=== PATIENT | male | born 1990 | race American Indian/Alaskan Native ===

== ENCOUNTER 2018-09-20 18:57 | Emergency (ER) | payer OTHER ==
[2018-09-20 19:15] VITALS: BP 132/90
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
== END 2018-09-20 21:34 | disposition home or self-care (01) ==
LOC: ED 18:57
DX: M54.5 Low back pain (principal); V49.59XA Passenger injured in collision with other motor vehicles in traffic accident, initial encounter; Y93.89 Activity, other specified; Y92.488 Other paved roadways as the place of occurrence of the external cause; Y99.8 Other external cause status
CPT/HCPCS: 99282

== ENCOUNTER 2019-11-29 21:31 | Emergency (ER) | payer SELFPAY ==
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
[2019-11-29 22:55] VITALS: BP 131/90
== END 2019-11-29 23:23 | disposition home or self-care (01) ==
LOC: ED 21:31
DX: M54.89 Other dorsalgia (principal); V89.2XXA Person injured in unspecified motor-vehicle accident, traffic, initial encounter; Y93.89 Activity, other specified; Y92.410 Unspecified street and highway as the place of occurrence of the external cause; Y99.8 Other external cause status
CPT/HCPCS: 99282

== ENCOUNTER 2020-03-04 09:14 | Emergency (ER) | payer SELFPAY ==
[2020-03-04 09:22] VITALS: BP 143/98
--- NOTE | 2020-03-04 10:06 | Emergency Department Report ---
ED ENT HPI - General Chief complaint: Dental/Oral Stated complaint: TOOTHACHE X 2 DAYS Time Seen by Provider: 03/04/20 10:01 Source: patient Mode of arrival: Ambulatory Limitations: No Limitations - History of Present Illness Initial comments: 29-year-old -[place] male presents to the emergency room complaining of a toothache since yesterday. Patient states is been taken Tylenol and ibuprofen without much help. Patient states he is aware that he has a bad tooth in his mouth. Patient states he is trying to make an appointment for next week to the dentist. Patient denies any fever chills no nausea no vomiting no headache. MD complaint: tooth pain Onset/Timin -: days(s) Location: tooth # (13) Severity: severe Severity scale (0 -10): 8 Quality: stabbing, aching, sharp Consistency: constant Improves with: none Worsens with: none Context- Dental: history of dental caries, poor dental care - Related Data Previous Rx's Medication Instructions Recorded Last Taken Type Ketorolac [Toradol] 10 mg PO Q6H PRN #15 tablet 09/20/18 Unknown Rx Ketorolac [Toradol] 10 mg PO Q6H PRN #15 tablet 11/29/19 Unknown Rx methOCARBAMOL [Robaxin] 750 mg PO Q8H PRN #21 tablet 11/29/19 Unknown Rx Clindamycin [Clindamycin CAP] 300 mg PO Q8H 10 Days #30 cap 03/04/20 Unknown Rx Allergies Allergy/AdvReac Type Severity Reaction Status Date / Time No Known Allergies Allergy Unverified 06/03/18 07:44 ED Dental HPI - General Chief complaint: Dental/Oral Stated complaint: TOOTHACHE X 2 DAYS Time Seen by Provider: 03/04/20 10:01 Source: patient Mode of arrival: Ambulatory Limitations: No Limitations - Related Data Previous Rx's Medication Instructions Recorded Last Taken Type Ketorolac [Toradol] 10 mg PO Q6H PRN #15 tablet 09/20/18 Unknown Rx Ketorolac [Toradol] 10 mg PO Q6H PRN #15 tablet 11/29/19 Unknown Rx methOCARBAMOL [Robaxin] 750 mg PO Q8H PRN #21 tablet 11/29/19 Unknown Rx Clindamycin [Clindamycin CAP] 300 mg PO Q8H 10 Days #30 cap 03/04/20 Unknown Rx Allergies Allergy/AdvReac Type Severity Reaction Status Date / Time No Known Allergies Allergy Unverified 06/03/18 07:44 ED Review of Systems ROS: Stated complaint: TOOTHACHE X 2 DAYS Other details as noted in HPI Comment: All other systems reviewed and negative ED Past Medical Hx - Past Medical History Previous Medical History?: No - Surgical History Past Surgical History?: No - Social History Smoking Status: Never Smoker Substance Use Type: Alcohol - Medications Home Medications: Home Medications Medication Instructions Recorded Confirmed Last Taken Type Ketorolac [Toradol] 10 mg PO Q6H PRN #15 tablet 09/20/18 Unknown Rx Ketorolac [Toradol] 10 mg PO Q6H PRN #15 tablet 11/29/19 Unknown Rx methOCARBAMOL [Robaxin] 750 mg PO Q8H PRN #21 tablet 11/29/19 Unknown Rx Clindamycin [Clindamycin CAP] 300 mg PO Q8H 10 Days #30 cap 03/04/20 Unknown Rx ED Physical Exam - General Limitations: No Limitations General appearance: alert, in no apparent distress - Head Head exam: Present: atraumatic, normocephalic - Eye Eye exam: Present: normal appearance - ENT ENT exam: Present: mucous membranes moist - Expanded ENT Exam Expanded Teeth exam: Present: dental caries, dental tenderness # (13), gingival enlargement - Neck Neck exam: Present: normal inspection, full ROM - Neurological Exam Neurological exam: Present: alert, oriented X3 - Psychiatric Psychiatric exam: Present: normal affect, normal mood - Skin Skin exam: Present: warm, dry, intact, normal color. Absent: rash ED Course Vital Signs 03/04/20 09:19 Temperature 98.2 F Pulse Rate 59 L Respiratory 16 Rate Blood Pressure 143/98 O2 Sat by Pulse 97 Oximetry ED Medical Decision Making - Medical Decision Making 29-year-old -[place] male presents to the emergency room complaining of a toothache since yesterday. Patient states is been taken Tylenol and ibuprofen without much help. Patient states he is aware that he has a bad tooth in his mouth. Patient states he is trying to make an appointment for next week to the dentist. Patient denies any fever chills no nausea no vomiting no headache. Patient be placed on clindamycin 300 mg 3 times daily for 10 days. Patient be also referred to a dentist. Patient continue taking Tylenol and ibuprofen for pain management. Critical care attestation.: If time is entered above; I have spent that time in minutes in the direct care of this critically ill patient, excluding procedure time. ED Disposition Clinical Impression: Dental abscess Disposition: DC- TO HOME OR SELFCARE Is pt being admited?: No Does the pt Need Aspirin: No Condition: Stable Instructions: Dental Abscess (ED) Additional Instructions: Complete antibiotics as prescribed. Continue with pain medication [id number] ibuprofen or Tylenol. Increase your fluid intake. Follow-up with a dentist. Prescriptions: Clindamycin [Clindamycin CAP] 300 mg PO Q8H 10 Days #30 cap Referrals: PRIMARY CARE [Primary Care Provider] - 3-5 Days [facility] [Outside] - 3-5 Days [facility] [Outside] - 3-5 Days [facility] [Provider Group] - 3-5 Days
== END 2020-03-04 10:43 | disposition home or self-care (01) ==
LOC: ED 09:14
DX: K04.7 Periapical abscess without sinus (principal)
CPT/HCPCS: 99281